=== PATIENT | male | born 1995 | race Caucasian/White ===

== ENCOUNTER 2017-04-05 12:07 | Emergency (ER) | payer MEDICAID ==
[2017-04-05 12:08] VITALS: BMI 26.6
[2017-04-05 12:14] VITALS: BP 115/75; PULSE 98; RESP 18; TEMP 98.8; O2SAT 100
--- NOTE | 2017-04-05 12:44 | ED PDOC ---
Arrival/HPI - General Chief Complaint: Cough, Cold, Congestion Time Seen by Provider: 04/05/17 12:41 Historian: Patient - History of Present Illness Narrative History of Present Illness (Text): 04/05/17 12:45 21-year-old male presents today with a 3 to four-day history of cough and nasal congestion sore throat and subjective fevers at home. Denies chest pain or shortness of breath. Denies sick contacts at home. Patient states he's missed work yesterday and today. Patient denies any other complaints. Past Medical History - Provider Review Nursing Documentation Reviewed: Yes - Travel History Have you recently traveled outside [place] w/in the past 3 mons?: No - Infectious Disease Hx of Infectious Diseases: None - Tetanus Immunization Tetanus Immunization: Unknown - Past Medical History Past Medical History: No Previous - Psychiatric Hx Substance Use: No - Past Surgical History Past Surgical History: No Previous - Anesthesia Hx Anesthesia: No Hx Anesthesia Reactions: No Hx Malignant Hyperthermia: No - Suicidal Assessment Feels Threatened In Home Enviroment: No Family/Social History - Physician Review Nursing Documentation Reviewed: Yes Family/Social History: Unknown Family HX Smoking Status: Never Smoked Hx Alcohol Use: No Hx Substance Use: No Hx Substance Use Treatment: No Allergies/Home Meds Allergies/Adverse Reactions: Allergies No Known Allergies Allergy (Verified 04/05/17 12:13) Review of Systems - Review of Systems Constitutional: absent: Fatigue, Fevers ENT: Sore Throat, Sinus Congestion Respiratory: Cough. absent: SOB Cardiovascular: absent: Chest Pain, Palpitations, Syncope Gastrointestinal: absent: Abdominal Pain, Nausea, Vomiting Skin: absent: Rash, Pruritis Neurological: absent: Headache, Dizziness Psychiatric: absent: Anxiety, Depression Physical Exam Vital Signs Reviewed: Yes Vital Signs Temp Pulse Resp BP Pulse Ox 04/05/17 12:12 98.8 F 98 H 18 115/75 100 Temperature: Afebrile Blood Pressure: Normal Pulse: Regular Respiratory Rate: Normal Appearance: Positive for: Well-Appearing, Non-Toxic, Comfortable Pain Distress: None Mental Status: Positive for: Alert and Oriented X 3 - Systems Exam Head: Present: Atraumatic Extroacular Muscles: Present: EOMI Conjunctiva: Present: Normal Ears: Present: Normal, NORMAL TM Mouth: Present: Moist Mucous Membranes Pharnyx: Present: Normal. No: ERYTHEMA, EXUDATE, TONSILS ENLARGED, Peritonsilar Swelling, Uvular Deviation, Muffled/Hoarse Voice, [place] Neck: Present: Normal Range of Motion Respiratory/Chest: Present: Clear to Auscultation, Good Air Exchange. No: Respiratory Distress, Accessory Muscle Use Cardiovascular: Present: Regular Rate and Rhythm, Normal S1, S2. No: Murmurs Abdomen: No: Tenderness, Rebound, Guarding Neurological: Present: GCS=15 Skin: Present: Warm, Dry, Normal Color. No: Rashes Psychiatric: Present: Alert, Oriented x 3 Medical Decision Making ED Course and Treatment: 04/05/17 13:30 Patient is nontoxic well-appearing in no distress. Vital signs are stable. Patient complaining of URI symptoms with cough requesting work note. I advised follow up with primary care physician within the next 2 days. I advised increase fluids and return if symptoms worsen persist or if new symptoms develop. Patient verbalizes understanding of discharge instructions and need for immediate followup. IMPRESSION;cough, upper respiratory infection Motrin every 6 hours as needed for pain/fever reduction Increase fluids zithromax; take as directed Follow up primary care physician within the next 2 days Return if symptoms worsen persist or if the symptoms develop Disposition/Present on Arrival - Present on Arrival Any Indicators Present on Arrival: No History of DVT/PE: No History of Uncontrolled Diabetes: No Urinary Catheter: No History of Decub. Ulcer: No History Surgical Site Infection Following: None - Disposition Have Diagnosis and Disposition been Completed?: Yes Diagnosis: Cough, Upper respiratory infection Disposition: HOME/ ROUTINE Disposition Time: 12:41 Patient Plan: Discharge Condition: GOOD Additional Instructions: Motrin every 6 hours as needed for pain/fever reduction Increase fluids zithromax; take as directed Follow up primary care physician within the next 2 days Return if symptoms worsen persist or if the symptoms develop Prescriptions: Azithromycin [Zithromax] 250 mg PO DAILY #6 tab Referrals: Phyllis Carpio MD [Primary Care Provider] - Follow up with primary Forms: [employer] ([place]), WORK NOTE
== END 2017-04-05 12:45 | disposition home or self-care (01) ==
LOC: ED 12:07
DX: R05 Cough (principal); J06.9 Acute upper respiratory infection, unspecified

== ENCOUNTER 2017-08-14 10:17 | Emergency (ER) | payer MEDICAID ==
[2017-08-14 10:18] VITALS: BMI 26.6
[2017-08-14 10:28] VITALS: BP 128/82; PULSE 106; RESP 18; TEMP 98.3; O2SAT 100
[2017-08-14] MEDS ORDERED: Tetracaine 0.5% Ophth 2 ML BOTTLE OS STA (10:40)
[2017-08-14] MEDS ORDERED: Fluorescein 1 mg Ophthalmic Strip OS ONE (10:40)
--- NOTE | 2017-08-14 11:16 | ED PDOC ---
Arrival/HPI - General Chief Complaint: Eye Problem Time Seen by Provider: 08/14/17 10:40 Historian: Patient - History of Present Illness Narrative History of Present Illness (Text): 08/14/17 11:13 22 y/o male, no eye surgery, no pmh, nkda, c/o lt. eye painful lump started 3 days ago with no painful movement of the eye. Pt. stated that he has pain on the eyelid lump, no change in vision (contrast to the triage), no numbness or tingling, no night sweat, no other medical or psychological complaints. Past Medical History - Provider Review Nursing Documentation Reviewed: Yes - Infectious Disease Hx of Infectious Diseases: None - Tetanus Immunization Tetanus Immunization: Unknown - Past Medical History Past Medical History: No Previous - Psychiatric Hx Substance Use: No - Past Surgical History Past Surgical History: No Previous - Anesthesia Hx Anesthesia: No Hx Anesthesia Reactions: No Hx Malignant Hyperthermia: No - Suicidal Assessment Feels Threatened In Home Enviroment: No Family/Social History - Physician Review Nursing Documentation Reviewed: Yes Family/Social History: Unknown Family HX Smoking Status: Never Smoked Hx Alcohol Use: No Hx Substance Use: No Hx Substance Use Treatment: No Allergies/Home Meds Allergies/Adverse Reactions: Allergies olive oil Allergy (Verified 08/14/17 10:25) ANGIOEDEMA Review of Systems - Review of Systems Constitutional: absent: Fatigue, Fevers Eyes: Other (lt eye painful lump). absent: Vision Changes ENT: absent: Hearing Changes Respiratory: absent: SOB, Cough Cardiovascular: absent: Chest Pain Gastrointestinal: absent: Abdominal Pain, Nausea, Vomiting Musculoskeletal: absent: Arthralgias, Back Pain Skin: absent: Rash, Pruritis Neurological: absent: Headache, Dizziness Psychiatric: absent: Anxiety, Depression Physical Exam Vital Signs Reviewed: Yes Vital Signs Temp Pulse Resp BP Pulse Ox 08/14/17 10:25 98.3 F 106 H 18 128/82 100 Temperature: Afebrile Blood Pressure: Normal Pulse: Tachycardic Respiratory Rate: Normal Appearance: Positive for: Well-Appearing, Non-Toxic, Comfortable Pain Distress: Mild Mental Status: Positive for: Alert and Oriented X 3 - Systems Exam Head: Present: Atraumatic, Normocephalic Pupils: Present: PERRL, Other (Eyes: left eye without correction 20/20 vs. right eye without correction 20/20, bilateral vision 20/20 without correction, no tearing with conjunctivitis on the left eye, no periorbital swelling except there is stye on the lt. upper eyelid medially with no periorbital cellulitis, no hyphema or subconjunctival hemorrage to the left eye, negative christiana signs and no corneal laceration/abrasion/ulcer/dendritic lesion on the left with with fluorsein strip, FREOM without limitation, no periorbital cellulitis or erythematous, no visible foreign bodies on the lt. upper and lower eyelids everted.) Extroacular Muscles: Present: EOMI Conjunctiva: Present: Normal Mouth: Present: Moist Mucous Membranes Neck: Present: Normal Range of Motion Respiratory/Chest: Present: Clear to Auscultation, Good Air Exchange. No: Respiratory Distress, Accessory Muscle Use Cardiovascular: Present: Regular Rate and Rhythm, Normal S1, S2. No: Murmurs Abdomen: Present: Normal Bowel Sounds. No: Tenderness, Distention, Peritoneal Signs Back: Present: Normal Inspection Upper Extremity: Present: Normal Inspection. No: Cyanosis, Edema Lower Extremity: Present: Normal Inspection. No: Edema Neurological: Present: GCS=15, CN II-XII Intact, Speech Normal Skin: Present: Warm, Dry, Normal Color. No: Rashes Psychiatric: Present: Alert, Oriented x 3, Normal Insight, Normal Concentration Medical Decision Making ED Course and Treatment: 08/14/17 11:15 -I examined the patient again with the bilateral vision 20/20 without correction. -Discharge home with erythromycin, naproxen, follow up with your own pmd and opthalmologist within 2 days, return to the ER for any new or worsening signs or symptoms. - Medication Orders Current Medication Orders: Discontinued Medications Fluorescein Sodium (Wppuc-N-Wnvky A.T.) 1 mg OS ONCE ONE Stop: 08/14/17 10:41 Last Admin: 08/14/17 11:02 Dose: 1 mg Tetracaine HCl (Tetracaine 0.5% Ophth Soln) 1 drop OS STAT STA Stop: 08/14/17 10:41 Last Admin: 08/14/17 11:02 Dose: 1 drop - PA / ENVELOPE SEALER / Resident Statement MD/DO has reviewed & agrees with the documentation as recorded. Disposition/Present on Arrival - Present on Arrival Any Indicators Present on Arrival: No History of DVT/PE: No History of Uncontrolled Diabetes: No Urinary Catheter: No History of Decub. Ulcer: No History Surgical Site Infection Following: None - Disposition Have Diagnosis and Disposition been Completed?: Yes Diagnosis: Stye Disposition: HOME/ ROUTINE Disposition Time: 11:17 Patient Plan: Discharge Condition: GOOD Additional Instructions: -Discharge home with erythromycin, naproxen, follow up with your own pmd and opthalmologist within 2 days, return to the ER for any new or worsening signs or symptoms. Prescriptions: Erythromycin 0.5% [Ilytocin] 0.5 in OS QID #5 g Naproxen 500 mg PO BID PRN #20 tab PRN Reason: Other Referrals: Aguilar Weber MD [Staff Provider] - Follow up with primary Forms: [employer] ([place]), WORK NOTE
== END 2017-08-14 11:26 | disposition home or self-care (01) ==
LOC: ED 10:17
DX: H00.024 Hordeolum internum left upper eyelid (principal)

== ENCOUNTER 2017-08-16 09:27 | Emergency (ER) | payer MEDICAID ==
--- NOTE | 2017-08-16 09:35 | ED PDOC ---
Arrival/HPI - General Time Seen by Provider: 08/16/17 09:34 Historian: Patient - History of Present Illness Narrative History of Present Illness (Text): 08/16/17 09:34 22 y/o male, no significant pmh, nkda, c/o nausea/vomiting/diarrhea started this morning with no recent traveling and no recent antibiotic use for the past 2 weeks. Pt. stated that he woke up this morning with nausea/vomiting/diarrhea started this morning, admits epigastric pain, no lower or periumgbilical pain, no urinary symptoms, no flank pain, no palpitation, no rash, no flank pain, no coughing, no fever or chills, no other medical or psychological complaints. Past Medical History - Provider Review Nursing Documentation Reviewed: Yes - Infectious Disease Hx of Infectious Diseases: None - Tetanus Immunization Tetanus Immunization: Unknown - Past Medical History Past Medical History: No Previous - Psychiatric Hx Substance Use: No - Past Surgical History Past Surgical History: No Previous - Anesthesia Hx Anesthesia: No Hx Anesthesia Reactions: No Hx Malignant Hyperthermia: No - Suicidal Assessment Feels Threatened In Home Enviroment: No Family/Social History - Physician Review Nursing Documentation Reviewed: Yes Family/Social History: Unknown Family HX Smoking Status: Never Smoked Hx Alcohol Use: No Hx Substance Use: No Hx Substance Use Treatment: No Allergies/Home Meds Allergies/Adverse Reactions: Allergies olive oil Allergy (Verified 08/14/17 10:25) ANGIOEDEMA Review of Systems - Review of Systems Constitutional: absent: Fatigue, Fevers Eyes: absent: Vision Changes ENT: absent: Hearing Changes Respiratory: absent: SOB, Cough Cardiovascular: absent: Chest Pain Gastrointestinal: Abdominal Pain, Diarrhea, Nausea, Vomiting Musculoskeletal: absent: Arthralgias Skin: absent: Rash, Pruritis Psychiatric: absent: Anxiety, Depression Physical Exam Vital Signs Temp Pulse Resp BP Pulse Ox 08/16/17 13:15 76 18 118/72 99 08/16/17 11:18 98.3 F 86 18 110/57 L 98 08/16/17 11:09 98.3 F 86 18 110/59 L 98 - Systems Exam Head: Present: Atraumatic, Normocephalic Pupils: Present: PERRL Extroacular Muscles: Present: EOMI Conjunctiva: Present: Normal Mouth: Present: Moist Mucous Membranes Neck: Present: Normal Range of Motion Respiratory/Chest: Present: Clear to Auscultation, Good Air Exchange. No: Respiratory Distress, Accessory Muscle Use Cardiovascular: Present: Regular Rate and Rhythm, Normal S1, S2. No: Murmurs Abdomen: Present: Tenderness (periumbilical tenderness), Normal Bowel Sounds, Other (negative mcburney and negative campuzano signs. ). No: Distention, Peritoneal Signs, Rebound, Guarding Back: Present: Normal Inspection Upper Extremity: Present: Normal Inspection. No: Cyanosis, Edema Lower Extremity: Present: Normal Inspection. No: Edema Neurological: Present: GCS=15, Speech Normal, Motor Func Grossly Intact, Gait Normal, Memory Normal Skin: Present: Warm, Dry, Normal Color. No: Rashes Psychiatric: Present: Alert, Oriented x 3, Normal Insight, Normal Concentration Medical Decision Making ED Course and Treatment: 08/16/17 11:02 Differential: Gastroenteritis vs. dehydration vs. appendicitis vs. colitis -labs/ua -IVF/pepcid/zofran -Observe and reassess 08/16/17 15:47 -Labs are non-significant except wbc 13.2 with mild elevation of AST and ALT -UA show no UTI -CT abdomen and pelvis show No acute findings. No evidence of appendicitis -Pain resolved, pt. is asymptomatic, eating and drinking well. Pt. is comfortable, request to be discharged home. -Discharge home with pepcid, zofran, avoid dairy diet for 3-5 days, BRAT diet, return to the ER for any new or worsening signs or symptoms. - Lab Interpretations Lab Results: 08/16/17 12:10 08/16/17 12:10 Lab Results 08/16/17 12:29: Urine Color Yellow, Urine Appearance Turbid, Urine pH 5.5, Ur Specific [place] >= 1.030, Urine Protein 30 H, Urine Glucose (UA) Negative, Urine Ketones Negative, Urine Blood Negative, Urine Nitrate Negative, Urine Bilirubin Small H, Urine Urobilinogen 0.2, Ur Leukocyte Esterase Negative, Urine RBC Negative, Urine WBC Negative, Amorphous Sediment Many 08/16/17 12:10: WBC 13.2 H D, RBC 5.31, Hgb 16.2, Hct 46.7, MCV 87.9, MCH 30.5, MCHC 34.7, RDW 12.7, Plt Count 277, MPV 9.8, Gran % 87.2 H, Lymph % (Auto) 9.6 L , [place] % (Auto) 2.5, Eos % (Auto) 0.5 L, Baso % (Auto) 0.2, Gran # 11.53 H, Lymph # 1.3, [place] # 0.3, Eos # 0.1, Baso # 0.02 08/16/17 12:10: Sodium 140, Potassium 4.2, Chloride 106, Carbon Dioxide 25, Anion Gap 14, BUN 14, Creatinine 1.0, Est GFR ( Amer) > 60, Est GFR (Non- Af Amer) > 60, Random Glucose 124 H, Calcium 9.5, Magnesium 2.0, Total Bilirubin 0.7, AST 60 H, ALT 131 H, Alkaline Phosphatase 95, Total Protein 8.5 H , Albumin 4.9 H, Globulin 3.6, Albumin/Globulin Ratio 1.4, Lipase 28 I have reviewed the lab results: Yes - RAD Interpretation Radiology Orders: 08/16/17 12:47 ABDOMEN & PELVIS [ABD & PELVIS IV CONTRAST ONLY] [CT] Stat PROCEDURE: CT Abdomen and Pelvis with contrast HISTORY: periumbilical pain/v/d COMPARISON: None. TECHNIQUE: Contrast dose: 100 cc of Omni 350 Radiation dose: Total exam DLP = 701 mGy-cm. This CT exam was performed using one or more of the following dose reduction techniques: Automated exposure control, adjustment of the mA and/or kV according to patient size, and/or use of iterative reconstruction technique. FINDINGS: LOWER THORAX: Unremarkable. LIVER: Unremarkable. No gross lesion or ductal dilatation. Mild fatty infiltration of the liver. GALLBLADDER AND BILE DUCTS: Unremarkable. PANCREAS: Unremarkable. No gross lesion or ductal dilatation. SPLEEN: Unremarkable. ADRENALS: Unremarkable. No mass. KIDNEYS AND URETERS: Unremarkable. No hydronephrosis. No solid mass. VASCULATURE: Unremarkable. No aortic aneurysm. BOWEL: Unremarkable. No obstruction. No gross mural thickening. APPENDIX: Normal appendix. PERITONEUM: Unremarkable. No free fluid. No free air. LYMPH NODES: Unremarkable. No enlarged lymph nodes. BLADDER: Unremarkable. REPRODUCTIVE: Unremarkable. BONES: No acute fracture. OTHER FINDINGS: None. IMPRESSION: No acute findings. 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 - Medication Orders Current Medication Orders: Discontinued Medications Famotidine (Pepcid) 20 mg IVP STAT STA Stop: 08/16/17 11:18 Last Admin: 08/16/17 12:44 Dose: 20 mg IVP Administration Document 08/16/17 12:44 [facility] [place] (Rec: 08/16/17 12:44 [place] [id number]) Charges for Administration # of IVP Administrations 1 Sodium Chloride (Sodium Chloride 0.9%) 1,000 mls @ 999 mls/hr IV .Q1H1M STA Stop: 08/16/17 12:17 Last Admin: 08/16/17 12:44 Dose: 999 mls/hr eMAR Start Stop Document 08/16/17 12:44 [facility] [place] (Rec: 08/16/17 12:[address]) Intravenous Solution Start Date 08/16/17 Start Time 12:44 End Date 08/16/17 End time 13:45 Total Infusion Time 61 Ondansetron HCl (Zofran Inj) 4 mg IVP STAT STA Stop: 08/16/17 11:18 Last Admin: 08/16/17 12:44 Dose: 4 mg IVP Administration Document 08/16/17 12:44 [facility] [place] (Rec: 08/16/17 12:[address]) Charges for Administration # of IVP Administrations 1 - PA / FLOOR ASSEMBLER / Resident Statement / has reviewed & agrees with the documentation as recorded. Disposition/Present on Arrival - Present on Arrival Any Indicators Present on Arrival: No History of DVT/PE: No History of Uncontrolled Diabetes: No Urinary Catheter: No History of Decub. Ulcer: No History Surgical Site Infection Following: None - Disposition Have Diagnosis and Disposition been Completed?: Yes Diagnosis: Gastroenteritis Disposition: HOME/ ROUTINE Disposition Time: 15:48 Patient Plan: Discharge Condition: IMPROVED Discharge Instructions (ExitCare): Gastroenteritis (ED) Print Language: [place] Additional Instructions: -Discharge home with pepcid, zofran, avoid dairy diet for 3-5 days, BRAT diet, return to the ER for any new or worsening signs or symptoms. Prescriptions: Famotidine [Pepcid] 20 mg PO BID #20 tab Ondansetron [Zofran] 4 mg PO Q8H PRN #10 tab PRN Reason: Nausea/Vomiting Referrals: Phyllis Carpio MD [Primary Care Provider] - Follow up with primary Ferdinand Salinas DO [Staff Provider] - Follow up with primary Forms: WORK NOTE
[2017-08-16 11:10] VITALS: RESP 18; BMI 31.0
[2017-08-16] MEDS ORDERED: Sodium Chloride 0.9% 1,000 ML IV STA (11:17)
[2017-08-16 12:39] LABS: BASO # 0.02 K/mm3 (0.0-2.0); BASO % 0.2 % (0.0-3.0); EOS # 0.1 (0.0-0.7); EOS % 0.5 % (1.5-5.0); GRAN # 11.53 (1.4-6.5); GRAN % 87.2 % (50.0-68.0); HEMOGLOBIN 16.2 g/dL (14.0-18.0); LYMPH # 1.3 (1.2-3.4); LYMPH % 9.6 % (22.0-35.0); MEAN CELL VOLUME 87.9 fl (80.0-105.0); MEAN CORPUSCULAR HEMOGLOBIN 30.5 pg (25.0-35.0); MEAN CORPUSCULAR HGB CONC 34.7 g/dl (31.0-37.0); MEAN PLATELET VOLUME 9.8 fl (7.0-11.0); MONO # 0.3 (0.1-0.6); MONO % 2.5 % (1.0-6.0); RBC 5.31 10^6/uL (3.5-6.1); RED CELL DISTRIBUTION WIDTH 12.7 % (11.5-14.5); WHITE BLOOD COUNT 13.2 10^3/ul (4.5-11.0)
[2017-08-16 12:47] LABS: PH,URINE 5.5 (4.7-8.0); URINE APPEARANCE TURBID (CLEAR); URINE BILIRUBIN SMALL (NEGATIVE); URINE BLOOD NEGATIVE (NEGATIVE); URINE COLOR YELLOW (YELLOW); URINE GLUCOSE (UA) NEGATIVE (NEGATIVE); URINE LEUKOCYTE ESTERASE NEGATIVE Leu/uL (NEGATIVE); URINE NITRATE NEGATIVE (NEGATIVE); URINE PROTEIN 30 mg/dL (<30 mg/dL); URINE UROBILINOGEN 0.2 E.U./dL (<1 E.U./dL)
[2017-08-16 12:48] LABS: ALBUMIN 4.9 g/dL (3.0-4.8); ALT/SGPT 131 U/L (7-56); AST/SGOT 60 U/L (17-59); BLOOD UREA NITROGEN 14 mg/dL (7-21); CALCIUM 9.5 mg/dL (8.4-10.5); GFR AFRICAN-AMERICAN > 60; GFR NON-AFRICAN AMERICAN > 60; LIPASE 28 U/L (23-300)
[2017-08-16 12:54] LABS: URINE AMORPHOUS SEDIMENT MANY; URINE RBC NEGATIVE /hpf (0-2); URINE WBC NEGATIVE /hpf (0-6)
[2017-08-16 13:07] LABS: ALB/GLOB RATIO 1.4 (1.1-1.8)
[2017-08-16] MEDS ORDERED: Iohexol 350 MG/100 ML VIAL ONE (13:15)
--- NOTE | 2017-08-16 15:13 | CT ---
PROCEDURE: CT Abdomen and Pelvis with contrast HISTORY: periumbilical pain/v/d COMPARISON: None. TECHNIQUE: Contrast dose: 100 cc of Omni 350 Radiation dose: Total exam DLP = 701 mGy-cm. This CT exam was performed using one or more of the following dose reduction techniques: Automated exposure control, adjustment of the mA and/or kV according to patient size, and/or use of iterative reconstruction technique. FINDINGS: LOWER THORAX: Unremarkable. LIVER: Unremarkable. No gross lesion or ductal dilatation. Mild fatty infiltration of the liver. GALLBLADDER AND BILE DUCTS: Unremarkable. PANCREAS: Unremarkable. No gross lesion or ductal dilatation. SPLEEN: Unremarkable. ADRENALS: Unremarkable. No mass. KIDNEYS AND URETERS: Unremarkable. No hydronephrosis. No solid mass. VASCULATURE: Unremarkable. No aortic aneurysm. BOWEL: Unremarkable. No obstruction. No gross mural thickening. APPENDIX: Normal appendix. PERITONEUM: Unremarkable. No free fluid. No free air. LYMPH NODES: Unremarkable. No enlarged lymph nodes. BLADDER: Unremarkable. REPRODUCTIVE: Unremarkable. BONES: No acute fracture. OTHER FINDINGS: None. IMPRESSION: No acute findings. No evidence of appendicitis
[2017-08-16 16:35] VITALS: BP 116/68; PULSE 70; TEMP 98; O2SAT 98
== END 2017-08-16 16:39 | disposition home or self-care (01) ==
LOC: ED 09:27
DX: K52.9 Noninfective gastroenteritis and colitis, unspecified (principal)
CPT/HCPCS: 74177; 80053; 81001; 83690; 83735; 85025; 96361; 96374; 96375; 99283; J2405; J7040; Q9967

== ENCOUNTER 2018-08-30 14:25 | Emergency (ER) | payer MEDICAID ==
[2018-08-30 15:30] VITALS: BMI 34.0
[2018-08-30 15:32] VITALS: RESP 18; TEMP 98.2
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
--- NOTE | 2018-08-30 17:36 | CT ---
Date of service: 08/30/2018 PROCEDURE: CT HEAD WITHOUT CONTRAST. HISTORY: head injury 8 days ago with continued headaches COMPARISON: None available. TECHNIQUE: Axial computed tomography images were obtained through the head/brain without intravenous contrast. Radiation dose: Total exam DLP = 940.2 mGy-cm. This CT exam was performed using one or more of the following dose reduction techniques: Automated exposure control, adjustment of the mA and/or kV according to patient size, and/or use of iterative reconstruction technique. FINDINGS: HEMORRHAGE: No intracranial hemorrhage. BRAIN: No mass effect or edema. No atrophy or chronic microvascular ischemic changes. VENTRICLES: No hydrocephalus. CALVARIUM: Unremarkable. PARANASAL SINUSES: Unremarkable as visualized. No significant inflammatory changes. MASTOID AIR CELLS: Unremarkable as visualized. No inflammatory changes. OTHER FINDINGS: None. IMPRESSION: No acute intracranial pathology identified.
[2018-08-30 18:35] VITALS: BP 130/90; PULSE 94; O2SAT 98
== END 2018-08-30 18:35 | disposition home or self-care (01) ==
LOC: ED 14:25
DX: R51 Headache (principal)